=== PATIENT | female | born 1985 | race Asian ===

== ENCOUNTER 2018-06-25 10:45 | Emergency (ER) | payer OTHER ==
[~2018-06-25] VITALS: Ht 152.4 cm; Wt 44.1 kg
[2018-06-25 10:54] VITALS: Ht 152.4 cm; Wt 44.1 kg
[2018-06-25 12:45] VITALS: BP 106/75
== END 2018-06-25 12:45 | disposition home or self-care (01) ==
LOC: ED 10:45
DX: G56.01 Carpal tunnel syndrome, right upper limb (principal); M25.511 Pain in right shoulder; R30.0 Dysuria

== ENCOUNTER 2018-08-22 15:43 | Emergency (ER) | payer OTHER ==
[~2018-08-22] VITALS: Ht 149.9 cm; Wt 45.4 kg
[2018-08-22 15:50] VITALS: Ht 149.9 cm; Wt 45.4 kg
[2018-08-22 17:30] VITALS: BP 112/75
== END 2018-08-22 18:02 | disposition home or self-care (01) ==
LOC: ED 15:43
DX: M54.6 Pain in thoracic spine (principal); N92.6 Irregular menstruation, unspecified

== ENCOUNTER → 2019-02-24 | Outpatient (CLI) | payer OTHER | END | disposition home or self-care (01) | LOC: US 16:02 | PROC: BU4CZZZ Ultrasonography of Uterus and Ovaries (ICD-10-PCS; principal; 2019-02-24) | DX: Z34.90 Encounter for supervision of normal pregnancy, unspecified, unspecified trimester (principal) ==

== ENCOUNTER → 2019-02-27 | Outpatient (CLI) | payer OTHER | END | disposition home or self-care (01) | LOC: LB 16:02 | DX: Z34.90 Encounter for supervision of normal pregnancy, unspecified, unspecified trimester (principal) ==

== ENCOUNTER → 2019-03-14 | Outpatient (CLI) | payer OTHER | END | disposition home or self-care (01) | LOC: US 14:34 | PROC: BY49ZZZ Ultrasonography of First Trimester, Single Fetus (ICD-10-PCS; principal; 2019-03-14) | DX: Z32.00 Encounter for pregnancy test, result unknown (principal) ==

== ENCOUNTER → 2019-03-27 | Outpatient (CLI) | payer OTHER | END | disposition home or self-care (01) | LOC: LB 12:46 | DX: O20.0 Threatened abortion (principal) ==

== ENCOUNTER → 2019-07-24 | Outpatient (CLI) | payer OTHER ==
[2019-07-24 10:48] LABS: BASOPHIL % 0.3 % (0-2); PLATELET COUNT 294 x10^3mcL (130-400)
== END | disposition home or self-care (01) ==
LOC: LB 09:13
DX: Z34.90 Encounter for supervision of normal pregnancy, unspecified, unspecified trimester (principal); N30.00 Acute cystitis without hematuria; Z11.3 Encounter for screening for infections with a predominantly sexual mode of transmission; Z31.430 Encounter of female for testing for genetic disease carrier status for procreative management

== ENCOUNTER → 2019-08-20 | Outpatient (CLI) | payer OTHER | END | disposition home or self-care (01) | LOC: LB 09:11 | DX: Z34.90 Encounter for supervision of normal pregnancy, unspecified, unspecified trimester (principal) ==

== ENCOUNTER → 2019-09-25 | Outpatient (CLI) | payer OTHER | END | disposition home or self-care (01) | LOC: LB 08:09 | DX: Z34.90 Encounter for supervision of normal pregnancy, unspecified, unspecified trimester (principal) ==

== ENCOUNTER → 2019-11-20 | Outpatient (CLI) | payer OTHER ==
[2019-11-20 09:52] LABS: BASOPHIL % 0.2 % (0-2); PLATELET COUNT 269 x10^3mcL (130-400); RED CELL DISTRIBUTION WIDTH 13.4 % (11.5-14.5)
== END | disposition home or self-care (01) ==
LOC: LB 09:25
DX: Z34.90 Encounter for supervision of normal pregnancy, unspecified, unspecified trimester (principal)
CPT/HCPCS: 87491; 87591